=== PATIENT | female | born 1995 | race Caucasian/White ===

== ENCOUNTER 2016-10-28 11:40 | Inpatient (IN) | payer BC ==
[~2016-10-28] VITALS: Ht 162.6 cm; Wt 63.2 kg
[2016-10-28] MEDS ORDERED: BCPILLS PO (11:51)
--- NOTE | 2016-10-28 12:45 | DIAGNOSTIC IMAGING REPORT ---
RIGHT FOOT MIN 3 VIEWS ROUTINE CLINICAL HISTORY: Right foot pain (heel region) Right pain COMPARISON: None. DISCUSSION: The bones and joint spaces appear intact. There is no evidence of fracture, dislocation or bony disease. There is no evidence for soft tissue swelling. IMPRESSION: Negative study. Electronically signed by: Tony Mccray M.D. 10/28/2016 12:44 PM Dictated Date/Time: 10/28/2016 12:43 PM
[2016-10-28 12:50] LABS: BASO % 0.4 %; BASO ABS # 0.02 K/uL (0-0.2); COMPLETE YES; EOS % 3.6 %; HEMATOCRIT 39.4 % (37-47); LYMPH % 36.5 %; LYMPH ABS # 2.01 K/uL (1.2-3.4); MEAN PLATELET VOLUME 9.8 fL (7.4-10.4); MONO % 5.4 %; NEUT % 54.1 %; PLATELET COUNT 164 K/uL (130-400); RED BLOOD COUNT 4.06 M/uL (4.2-5.4); WHITE BLOOD COUNT 5.51 K/uL (4.8-10.8)
[2016-10-28 13:06] LABS: BUN/CREATININE RATIO 12.9 (10-20); CALCIUM 9.3 mg/dl (8.5-10.1); CREATININE 0.84 mg/dl (0.60-1.20); POTASSIUM 3.8 mmol/L (3.5-5.1)
[2016-10-28] MEDS ORDERED: SODIUM CHLORIDE 0.9% 1000ML 1,000 ML IV STA (13:29)
--- NOTE | 2016-10-28 13:56 | EMERGENCY ROOM VISIT NOTE ---
History First contact with patient: 11:49 Chief Complaint: FOOT PAIN Stated Complaint: PAIN IN RT FOOT/ALSO RT HAMSTRING History of Present Illness The patient is a 21 year old female who presents to the Emergency Room via private vehicle accompanied by male friend with complaints of "pain and right foot/also right hamstring". The patient states that she developed pain in the right foot/heel since yesterday morning. She notes that she has been more active recently and the past 2 weeks and has began a new exercise regimen. She also points pain to the right distal hamstring region that also began yesterday without any known injury. She states that the heel pain began when she woke up yesterday. She also notes that the hamstring does not feel like a cramp it is just a constant pain. The male air brake worker in the room states that the patient did jump landing on the heel about a week and a half ago that may or may not be related. Patient denies any chest pain, shortness of breath, fevers, chills, calf pain. Patient denies any urinary symptoms. Patient is unaware of any changes in her urine color. Review of Systems A complete 6-point Review of Systems was discussed with the patient, with pertinent positives and negatives listed in the History of Present Illness. All remaining Review of Systems questions can be considered negative unless otherwise specified. Past Medical/Surgical History Medical Problems: (1) Rhabdomyolysis Family History No pertinent family history at this time. Social History Smoking Status: Never Smoker Social History: Patient is a [employer] student. Current/Historical Medications Scheduled Control Pills ( Control Pills), 1 TAB PO DAILY Allergies Coded Allergies: Amoxicillin (Verified Allergy, Unknown, unknown, 10/28/16) Physical Exam Vital Signs Date Time Temp Pulse Resp B/P Pulse Ox O2 Delivery O2 Flow Rate FiO2 10/28/16 14:31 67 18 108/65 100 Room Air 10/28/16 11:47 36.8 63 18 110/69 99 Room Air Physical Exam VITAL SIGNS - Vital signs and nursing notes were reviewed. Patient is afebrile , she is normotensive, she is not tachycardic and saturating well on room air at 99%. GENERAL -21-year-old female appearing her stated age who is in no acute distress. Communicates well with provider and answers questions appropriately. SKIN - Without rashes. Skin is unremarkable. HEAD - NC/AT. LUNGS - Chest wall symmetric without accessory muscle use, intercostals retractions, or central cyanosis. Normal vesicular breath sounds CTA B/L. No wheezes, rales, or rhonchi appreciated. CARDIAC - RRR with S1/S2. No murmur, rubs, or gallops appreciated. EXTREMITIES - No clubbing or peripheral cyanosis. No pretibial edema present. Patient is vascularly intact in her extremities. There is tenderness palpation overlying the distal right hamstring. The calcaneal pain is not reproducible. There is no bony abnormality noted. The skin overlying these regions is unremarkable. No bony tenderness. +5/5 strength noted in UE/LE bilaterally. Medical Decision & Procedures ER Provider Diagnostic Interpretation: RIGHT FOOT MIN 3 VIEWS ROUTINE CLINICAL HISTORY: Right foot pain (heel region) Right pain COMPARISON: None. DISCUSSION: The bones and joint spaces appear intact. There is no evidence of fracture, dislocation or bony disease. There is no evidence for soft tissue swelling. IMPRESSION: Negative study. Electronically signed by: Tony Mccray M.D. 10/28/2016 12:44 PM Dictated Date/Time: 10/28/2016 12:43 PM ULTRASOUND RIGHT LOWER EXTREMITY VENOUS CLINICAL HISTORY: Right leg pain. COMPARISON STUDY: No priors. TECHNIQUE: Real-time, grayscale, and color Doppler sonography of the deep veins of the right lower extremity was performed from the inguinal crease to the calf. Compression and augmentation were utilized. FINDINGS: There is no sonographic evidence of deep venous thrombosis identified in the right lower extremity. The common femoral, superficial femoral, and popliteal veins are patent and normally compressible. The greater saphenous vein and the profunda femoris vein at the junction with the common femoral vein are clear. The visualized calf veins are patent. IMPRESSION: There is no sonographic evidence of deep venous thrombosis identified in the right lower extremity. Electronically signed by: Giles Juárez M.D. 10/28/2016 2:05 PM Dictated Date/Time: 10/28/2016 2:05 PM Laboratory Results 10/28/16 12:31 Red Blood Count 4.06, Mean Corpuscular Volume 97.0, Mean Corpuscular Hemoglobin 33.0, Mean Corpuscular Hemoglobin Concent 34.0, Mean Platelet Volume 9.8, Neutrophils (%) (Auto) 54.1, Lymphocytes (%) (Auto) 36.5, Monocytes (%) (Auto) 5.4, Eosinophils (%) (Auto) 3.6, Basophils (%) (Auto) 0.4, Neutrophils # (Auto) 2.98, Lymphocytes # (Auto) 2.01, Monocytes # (Auto) 0.30, Eosinophils # (Auto) 0.20, Basophils # (Auto) 0.02 10/28/16 12:31 Test 10/28/16 12:31 White Blood Count 5.51 K/uL (4.8-10.8) Red Blood Count 4.06 M/uL (4.2-5.4) Hemoglobin 13.4 g/dL (12.0-16.0) Hematocrit 39.4 % (37-47) Mean Corpuscular Volume 97.0 fL (80-100) Mean Corpuscular Hemoglobin 33.0 pg (25-34) Mean Corpuscular Hemoglobin Concent 34.0 g/dl (32-36) Platelet Count 164 K/uL (130-400) Mean Platelet Volume 9.8 fL (7.4-10.4) Neutrophils (%) (Auto) 54.1 % Lymphocytes (%) (Auto) 36.5 % Monocytes (%) (Auto) 5.4 % Eosinophils (%) (Auto) 3.6 % Basophils (%) (Auto) 0.4 % Neutrophils # (Auto) 2.98 K/uL (1.4-6.5) Lymphocytes # (Auto) 2.01 K/uL (1.2-3.4) Monocytes # (Auto) 0.30 K/uL (0.11-0.59) Eosinophils # (Auto) 0.20 K/uL (0-0.5) Basophils # (Auto) 0.02 K/uL (0-0.2) RDW Standard Deviation 44.1 fL (36.4-46.3) RDW Coefficient of Variation 12.5 % (11.5-14.5) Immature Granulocyte % (Auto) 0.0 % Immature Granulocyte # (Auto) 0.00 K/uL (0.00-0.02) Anion Gap 9.0 mmol/L (3-11) Est Creatinine Clear Calc Drug Dose 91.5 ml/min Estimated GFR () 115.1 Estimated GFR (Non- 99.4 BUN/Creatinine Ratio 12.9 (10-20) Calcium Level 9.3 mg/dl (8.5-10.1) Total Bilirubin 0.4 mg/dl (0.2-1) Direct Bilirubin < 0.1 mg/dl (0-0.2) Aspartate Amino Transf (AST/SGOT) 63 U/L (15-37) Alanine Aminotransferase (ALT/SGPT) 39 U/L (12-78) Alkaline Phosphatase 43 U/L (45-117) Creatine Kinase MB 0.7 ng/ml (0.5-3.6) Creatine Kinase MB Ratio 0.0 (0-3.0) Total Protein 7.5 gm/dl (6.4-8.2) Albumin 4.0 gm/dl (3.4-5.0) Medications Administered Medications (Trade) Dose Ordered Sig/Celso Route Start Time Stop Time Status Last Admin Dose Admin Sodium Chloride (Nss 1000ml) 1,000 ml @ 999 mls/hr Q1H1M STAT IV 10/28/16 13:29 10/28/16 15:17 DC 10/28/16 13:40 999 MLS/HR Medical Decision Patient was seen and evaluated as above. After obtaining a thorough history and physical examination IV access was obtained and a CBC, PRP, CPK, CK-MB, foot min on three-view routine, and lower extremity ultrasound was ordered secondary to subjective and objective examination findings. Top 3 differential diagnoses initially were DVT, rhabdomyolysis, and bone injury. Radiograph excluded bone injury. No sonographic evidence of DVT. CPK was elevated at around 3500. This is consistent with rhabdomyolysis. She was hydrated with 1 L of normal saline bolus. I then felt that the patient admitted inpatient criteria and would benefit from inpatient admission. The case was discussed with Dr. Friend at 2:53 PM. He happily agreed to see the patient. Please refer to further hospital documentation regarding the patient's stay. The remainder of the patient's blood work was relatively unremarkable. Slight anemia with red blood cell count of 4.06. Hemoglobin is stable rated glucose was also slightly high at 108. No other concerning abnormalities. In evaluation treatment this patient following differential diagnoses were entertained: Underlying bony abnormality, DVT, rhabdomyolysis, muscular strain, among others. Departure Information Dispostion Admitted as an inpatient Referrals No Doctor, Assigned (PCP) Klever Wei MD Patient Instructions My [facility] Additional Instructions You have been treated in the Emergency Department for right heel pain. For pain control, you can use the following [id number] medicines (if >12 yo): - Regular strength (325mg/tab) Tylenol (acetaminophen) 2 tabs every 4-6 hours as needed. Do not exceed 12 tablets in a 24 hour period. Avoid taking more than 4 grams (4000 mg) of Tylenol per day. This includes any other sources of acetaminophen you may take on a regular basis. - Regular strength (200 mg/tab) Advil (ibuprofen) 1-2 tabs every 4-6 hours as needed. Do not exceed a dose of 3200 mg per day. If this is a recent injury (<24 hrs), ice can be applied to the area of pain for the first 3 days to help decrease pain and inflammation. You have been provided the number for an Orthopaedic Surgeon. You should call this number as soon as possible to establish a follow-up visit from today's Emergency Department visit. (Dr. Wei) Keep the ankle brace/splint in place until cleared by Orthopedics. Use the crutches you have been provided to keep ALL weight off of the ankle until weight bearing is tolerable. Return to the Emergency Department if your current symptoms worsen despite treatment course outlined above, or if you develop any of the following symptoms : intractable pain despite aforementioned treatment course or new onset of numbness or tingling of the foot.
--- NOTE | 2016-10-28 14:07 | DIAGNOSTIC IMAGING REPORT ---
ULTRASOUND RIGHT LOWER EXTREMITY VENOUS CLINICAL HISTORY: Right leg pain. COMPARISON STUDY: No priors. TECHNIQUE: Real-time, grayscale, and color Doppler sonography of the deep veins of the right lower extremity was performed from the inguinal crease to the calf. Compression and augmentation were utilized. FINDINGS: There is no sonographic evidence of deep venous thrombosis identified in the right lower extremity. The common femoral, superficial femoral, and popliteal veins are patent and normally compressible. The greater saphenous vein and the profunda femoris vein at the junction with the common femoral vein are clear. The visualized calf veins are patent. IMPRESSION: There is no sonographic evidence of deep venous thrombosis identified in the right lower extremity. Electronically signed by: Giles Juárez M.D. 10/28/2016 2:05 PM Dictated Date/Time: 10/28/2016 2:05 PM
[2016-10-28] MEDS ORDERED: ONDANSETRON INJ 2 MG/ML 2 ML VIAL IV PRN (15:45)
[2016-10-28] MEDS ORDERED: ACETAMINOPHEN IV 100 ML IV PRN (15:45)
[2016-10-28] MEDS ORDERED: ACETAMINOPHEN 325 MG TAB PO PRN (15:45)
[2016-10-28] MEDS ORDERED: ZOLPIDEM TARTRATE 5 MG TAB PO PRN (15:45)
[2016-10-28 16:10] LABS: ALKALINE PHOSPHATASE 43 U/L (45-117); ALT/SGPT 39 U/L (12-78); AST/SGOT 63 U/L (15-37)
[2016-10-28] MEDS: NSS + 20MEQ KCL 1000ML 1,000 ML IV SCH ×2 (18:26→23:51)
[2016-10-28 22:38] VITALS: BP 102/69; PULSE 65; TEMP 36.7; O2SAT 100; Ht 162.6 cm; Wt 63.2 kg
[2016-10-28 23:59] VITALS: BP 109/65; PULSE 57; TEMP 36.5; O2SAT 100
--- NOTE | 2016-10-29 03:20 | History and Physical ---
History & Physical Date & Time of Service: Oct 29, 2016 at 03:15 Chief Complaint: Rhabdomyolysis Primary Care Physician: No Doctor, Assigned History of Present Illness Source: patient, partner The patient is a 21-year-old female who presents emergency department with complaint of pain in her right hamstring area and right calf area. The pain first developed yesterday morning, after 2 weeks of a more aggressive new exercise program. She has not reported any direct trauma. She's had no previous symptoms such as this. She's had no recent trips, she has no chest pain or shortness of breath. She does take protein supplements before and after exercising. Social History Smoking Status: Never Smoker Smokeless Tobacco Use: No Alcohol Use: none Drug Use: none Marital Status: in relationship Occupational Status: [employer] student Multi-Drug Resistant Organisms History of MDRO: No Allergies Coded Allergies: Amoxicillin (Verified Allergy, Unknown, unknown, 10/28/16) Home Medications Scheduled Control Pills ( Control Pills), 1 TAB PO DAILY Review of Systems The patient denies chest pain, palpitations, shortness of breath, cough, lower extremity swelling, vision change, hearing change, sore throat, fevers, chills, sweats, weight change, fatigue, nausea, vomiting, abdominal pain, pelvic pain, blood in urine or stool, dysuria, urinary frequency or urgency, lightheadedness , dizziness, headache, memory loss, rash, abnormal bruising or bleeding, imbalance, focal or generalized weakness, back or neck pain, night sweats, or allergy symptoms. The review of systems is otherwise negative other than for that already noted above, and at least 10 systems have been reviewed. Physical Exam Vital Signs Date Time Temp Pulse Resp B/P Pulse Ox O2 Delivery O2 Flow Rate FiO2 10/28/16 23:59 36.5 57 16 109/65 100 Room Air 10/28/16 22:38 36.7 65 18 102/69 100 Room Air 10/28/16 16:23 61 16 113/76 100 Room Air 10/28/16 14:31 67 18 108/65 100 Room Air 10/28/16 11:47 36.8 63 18 110/69 99 Room Air The patient is awake, well-developed and adequately nourished, alert and oriented 3, normocephalic and atraumatic, lying in bed and in no acute distress. HEENT--PERRL, EOMI, mucous membranes and oropharynx dry. Neck--supple, no JVD or bruits, thyroid normal, trachea midline, no adenopathy. Heart--normal S1 and S2, no extra beats, no murmurs, rubs or gallops. Lungs--clear bilaterally with good air movement, no respiratory distress, no accessory muscle use. Abdomen--normal bowel sounds and soft, nontender and nondistended, no hernias or masses, no organomegaly. Extremities--no cyanosis, clubbing or edema. There are good distal pulses b/l. Dermatologic--normal skin turgor, normal color, warm and dry, no abnormal lymph nodes, no rash. Neurologic--cranial nerves II through XII grossly intact, motor and sensory examination normal. Rheumatologic--mild reproducible pain over right hamstring and right calf area, with full range of motion. Psychiatric--normal affect. Diagnostics Laboratory Results Results Past 24 Hours Test 10/28/16 12:31 10/28/16 16:23 10/28/16 23:53 Range/Units White Blood Count 5.51 4.8-10.8 K/uL Red Blood Count 4.06 4.2-5.4 M/uL Hemoglobin 13.4 12.0-16.0 g/dL Hematocrit 39.4 37-47 % Mean Corpuscular Volume 97.0 80-100 fL Mean Corpuscular Hemoglobin 33.0 25-34 pg Mean Corpuscular Hemoglobin Concent 34.0 32-36 g/dl Platelet Count 164 130-400 K/uL Mean Platelet Volume 9.8 7.4-10.4 fL Neutrophils (%) (Auto) 54.1 % Lymphocytes (%) (Auto) 36.5 % Monocytes (%) (Auto) 5.4 % Eosinophils (%) (Auto) 3.6 % Basophils (%) (Auto) 0.4 % Neutrophils # (Auto) 2.98 1.4-6.5 K/uL Lymphocytes # (Auto) 2.01 1.2-3.4 K/uL Monocytes # (Auto) 0.30 0.11-0.59 K/uL Eosinophils # (Auto) 0.20 0-0.5 K/uL Basophils # (Auto) 0.02 0-0.2 K/uL RDW Standard Deviation 44.1 36.4-46.3 fL RDW Coefficient of Variation 12.5 11.5-14.5 % Immature Granulocyte % (Auto) 0.0 % Immature Granulocyte # (Auto) 0.00 0.00-0.02 K/uL Sodium Level 142 136-145 mmol/L Potassium Level 3.8 3.5-5.1 mmol/L Chloride Level 107 98-107 mmol/L Carbon Dioxide Level 26 21-32 mmol/L Anion Gap 9.0 3-11 mmol/L Blood Urea Nitrogen 11 7-18 mg/dl Creatinine 0.84 0.60-1.20 mg/dl Est Creatinine Clear Calc Drug Dose 91.5 ml/min Estimated GFR () 115.1 Estimated GFR (Non- 99.4 BUN/Creatinine Ratio 12.9 10-20 Random Glucose 108 70-99 mg/dl Calcium Level 9.3 8.5-10.1 mg/dl Total Bilirubin 0.4 0.2-1 mg/dl Direct Bilirubin < 0.1 0-0.2 mg/dl Aspartate Amino Transf (AST/SGOT) 63 15-37 U/L Alanine Aminotransferase (ALT/SGPT) 39 12-78 U/L Alkaline Phosphatase 43 45-117 U/L Total Creatine Kinase 3597 3076 3441 26-192 U/L Creatine Kinase MB 0.7 0.5-3.6 ng/ml Creatine Kinase MB Ratio 0.0 0-3.0 Total Protein 7.5 6.4-8.2 gm/dl Albumin 4.0 3.4-5.0 gm/dl Diagnostic Radiology Patient Name: EMMIE TURNER Unit Number: [id number] Dictated: 10/28/161404 Transcribed: 10/28/161404 EV Printed Date/Time: [~ rep prt dt]/[~ rep prt tm] [~ rep ct labl] - [~ rep ct ivnm] [facility] [place] [address] Dictated: 10/28/161404 Transcribed: 10/28/161404 EV Printed Date/Time: [~ rep prt dt]/[~ rep prt tm] [~ rep ct labl] - [~ rep ct ivnm] [~ rep ct add3]] ULTRASOUND RIGHT LOWER EXTREMITY VENOUS CLINICAL HISTORY: Right leg pain. COMPARISON STUDY: No priors. TECHNIQUE: Real-time, grayscale, and color Doppler sonography of the deep veins of the right lower extremity was performed from the inguinal crease to the calf. Compression and augmentation were utilized. FINDINGS: There is no sonographic evidence of deep venous thrombosis identified in the right lower extremity. The common femoral, superficial femoral, and popliteal veins are patent and normally compressible. The greater saphenous vein and the profunda femoris vein at the junction with the common femoral vein are clear. The visualized calf veins are patent. IMPRESSION: There is no sonographic evidence of deep venous thrombosis identified in the right lower extremity. Electronically signed by: Giles Juárez M.D. 10/28/2016 2:05 PM Dictated Date/Time: 10/28/2016 2:05 PM The status of this report is Signed. Draft = Not yet reviewed or approved by Radiologist. Signed = Reviewed and approved by Radiologist. <AttendingPhy></AttendingPhy> <FamilyPhy>No Doctor, Assigned</FamilyPhy> < PrimaryPhy>No Doctor, Assigned</PrimaryPhy> <UnitNumber>[id number]</UnitNumber> <VisitNumber>[id number]</VisitNumber> <PatientName>EMMIE TURNER</PatientName> < DateOfBirth>1995</DateOfBirth> <Location>[facility]</Location> <ServiceDate></ServiceDate> <MNE>ESINDI</MNE> <OrderingPhy>Hermes Gallagher PA-C</ OrderingPhy> <OrderingPhyMNE>f rep ord dr sherman</OrderingPhyMNE> <DictatingPhyMNE> f rep dict dr sherman</DictatingPhyMNE> <CCListMNE>f rep ct lane</CCListMNE> < AdmittingPhyMNE>f pt admit dr sherman</AdmittingPhyMNE> <AttendingPhyMNE>f pt attend dr sherman</AttendingPhyMNE> <ConsultingPhyMNE>f pt consult dr sherman</ConsultingPhyMNE> <FamilyPhyMNE>f pt fam dr sherman</FamilyPhyMNE> <OtherPhyMNE>f pt other dr sherman</OtherPhyMNE> < PrimaryPhyMNE>f pt prim care dr sherman</PrimaryPhyMNE> <ReferringPhyMNE>f pt referring dr sherman</ReferringPhyMNE> Patient Name: EMMIE TURNER Unit Number: [id number] Dictated: 10/28/161242 Transcribed: 10/28/161242 MS Printed Date/Time: [~ rep prt dt]/[~ rep prt tm] [~ rep ct labl] - [~ rep ct ivnm] [facility] [place] [address] Dictated: 10/28/16 124 Transcribed: 10/28/16 1243 MS Printed Date/Time: [~ rep prt dt]/[~ rep prt tm] [~ rep ct labl] - [~ rep ct ivnm] RIGHT FOOT MIN 3 VIEWS ROUTINE CLINICAL HISTORY: Right foot pain (heel region) Right pain COMPARISON: None. DISCUSSION: The bones and joint spaces appear intact. There is no evidence of fracture, dislocation or bony disease. There is no evidence for soft tissue swelling. IMPRESSION: Negative study. Electronically signed by: Tony Mccray M.D. 10/28/2016 12:44 PM Dictated Date/Time: 10/28/2016 12:43 PM The status of this report is Signed. Draft = Not yet reviewed or approved by Radiologist. Signed = Reviewed and approved by Radiologist. <AttendingPhy></AttendingPhy> <FamilyPhy>No Doctor, Assigned</FamilyPhy> < PrimaryPhy>No Doctor, Assigned</PrimaryPhy> <UnitNumber>[id number]</UnitNumber> <VisitNumber>[id number]</VisitNumber> <PatientName>EMMIE TURNER</PatientName> < DateOfBirth>1995</DateOfBirth> <Location>[facility]</Location> <ServiceDate></ServiceDate> <MNE>ESINDI</MNE> <OrderingPhy>Hermes Gallagher PA-C</ OrderingPhy> <OrderingPhyMNE>f rep ord dr sherman</OrderingPhyMNE> <DictatingPhyMNE> f rep dict dr sherman</DictatingPhyMNE> <CCListMNE>f rep ct lane</CCListMNE> < AdmittingPhyMNE>f pt admit dr sherman</AdmittingPhyMNE> <AttendingPhyMNE>f pt attend dr sherman</AttendingPhyMNE> <ConsultingPhyMNE>f pt consult dr sherman</ConsultingPhyMNE> <FamilyPhyMNE>f pt fam dr sherman</FamilyPhyMNE> <OtherPhyMNE>f pt other dr sherman</OtherPhyMNE> < PrimaryPhyMNE>f pt prim care dr sherman</PrimaryPhyMNE> <ReferringPhyMNE>f pt referring dr sherman</ReferringPhyMNE> Impression Assessment and Plan Rhabdomyolysis--patient's lower extremity venous Dopplers are negative for DVT has been no direct injury to bone. Her initial CK is elevated at 3597. We'll aggressively rehydrate with IV fluids, follow serial BMP CK and magnesium levels. She is advised to avoid protein supplements in the future. Level of Care Med/Surg Advanced Directives Existing Advance Directive: No Existing Living Will: No Existing Power of Drywall Sander: No Resuscitation Status FULL RESUSCITATION VTE Prophylaxis VTE Risk Assessment Done? Y/N: Yes Risk Level: Low Given or contraindicated: Treatment not indicated Social Service Consult None Apply
[2016-10-29] MEDS: NSS + 20MEQ KCL 1000ML 1,000 ML IV SCH ×5 (04:51→23:52)
[2016-10-29 07:52] VITALS: BP 107/74; PULSE 82; TEMP 36.8; O2SAT 99
[2016-10-29 15:02] LABS: BUN/CREATININE RATIO 8.3 (10-20); CALCIUM 8.3 mg/dl (8.5-10.1); CREATININE 0.71 mg/dl (0.60-1.20); POTASSIUM 3.9 mmol/L (3.5-5.1)
[2016-10-29 15:13] VITALS: BP 103/69; PULSE 89; TEMP 36.9; O2SAT 100
--- NOTE | 2016-10-29 15:36 | Medical Student: [facility] ---
Med Student History & Physical Date & Time of Service: Oct 29, 2016 at 09:17 Chief Complaint: Rhabdomyolysis Primary Care Physician: No Doctor, Assigned History of Present Illness Crystal is a 21 y/o female with no significant past medical history was seen in the ED yesterday complaining of pain in her RLE, which was mainly localized to her ankle and the medial aspect of her thigh. In the ED, she was noted to have an elevated CK, so she was admitted for possible rhabdomyolysis. Two weeks ago, she started a vigorous new exercise program that includes a significant amount of weight training. Prior to this, she had only been exercising approximately once per week. She takes a protein supplement and a pre-workout supplement daily. She describes her pain as 6/10, dull, and non-radiating. She has never experienced an event like this in the past. She denies dark urine, lower back pain, or any urinary symptoms. She denies paresthesias or sensory loss. She denies any feeling of coolness or clamminess in the RLE, and has not noticed any skin changes. She denies any loss of strength or range of motion in her lower extremities bilaterally. She denies any blunt trauma to the area. She has not tried any interventions to improve her pain. She has no history of clotting or bleeding disorders, but is currently taking an oral contraceptive. Family History Non-contributory. Social History Smoking Status: Never Smoker Smokeless Tobacco Use: No Alcohol Use: none Drug Use: none Marital Status: in relationship Occupational Status: [employer] student Immunizations History of Influenza Vaccine: Yes History of Tetanus Vaccine?: Yes History of Pneumococcal: Yes History of Hepatitis B Vaccine: Yes Allergies Coded Allergies: Amoxicillin (Verified Allergy, Unknown, unknown, 10/28/16) Medications Control Pills ( Control Pills), 1 TAB PO DAILY Review of Systems Constitutional: No chills, No fever, No sweats, No weakness, No weight loss Eyes: No diplopia, No eye pain ENT: No hearing loss, No unusual epistaxis Respiratory: No cough, No shortness of breath, No sputum Cardiovascular: No chest pain, No palpitations Abdomen: No GI bleeding, No constipation, No diarrhea, No nausea, No pain, No vomiting Musculoskeletal: + calf pain, + muscle pain, No swelling Genitourinary - Female: No dysuria, No hematuria, No urinary frequency, No urinary incontinence, No urinary retention, No urinary urgency Neurologic: No balance problems, No paralysis, No weakness Psychiatric: No problem reported Endocrine: No excessive thirst, No excessive urination Hematologic / Lymphatic: No abnormal bleeding/bruising, No clotting problems Integumentary: No bleeding, No color change, No new/changing skin lesions Physical Exam Vital Signs (24 Hours) Date Time Temp Pulse Resp B/P Pulse Ox O2 Delivery O2 Flow Rate FiO2 10/29/16 07:52 36.8 82 16 107/74 99 Room Air 10/29/16 00:00 Room Air 10/28/16 23:59 36.5 57 16 109/65 100 Room Air 10/28/16 22:38 36.7 65 18 102/69 100 Room Air 10/28/16 16:23 61 16 113/76 100 Room Air 10/28/16 14:31 67 18 108/65 100 Room Air 10/28/16 11:47 36.8 63 18 110/69 99 Room Air General Appearance: WD/WN, no apparent distress Head: normocephalic, atraumatic Eyes: normal inspection, PERRL, EOMI Neck: supple, no adenopathy, no JVD, no carotid bruits Respiratory/Chest: chest non-tender, lungs clear, normal breath sounds, no respiratory distress, no accessory muscle use Cardiovascular: regular rate, rhythm, no edema, no gallop, no JVD, no murmur, normal peripheral pulses Abdomen/GI: normal bowel sounds, non tender, soft, no organomegaly, no pulsatile mass Back: normal inspection, no CVA tenderness, no muscle spasm, normal range of motion Extremities/Musculoskelatal: normal inspection, normal capillary refill, no pedal edema, normal range of motion, + calf tenderness Neurologic/Psych: no motor/sensory deficits, alert, normal mood/affect, normal reflexes (2+ ankle jerk and patellar tendon reflexes bilaterally), oriented x 3 Skin: normal color, warm/dry, no rash Lymphatic: no adenopathy Diagnostics Laboratory Results Results Past 24 Hours Test 10/28/16 12:31 10/28/16 16:23 10/28/16 23:53 10/29/16 08:03 Range/Units White Blood Count 5.51 4.8-10.8 K/uL Red Blood Count 4.06 4.2-5.4 M/uL Hemoglobin 13.4 12.0-16.0 g/dL Hematocrit 39.4 37-47 % Mean Corpuscular Volume 97.0 80-100 fL Mean Corpuscular Hemoglobin 33.0 25-34 pg Mean Corpuscular Hemoglobin Concent 34.0 32-36 g/dl Platelet Count 164 130-400 K/uL Mean Platelet Volume 9.8 7.4-10.4 fL Neutrophils (%) (Auto) 54.1 % Lymphocytes (%) (Auto) 36.5 % Monocytes (%) (Auto) 5.4 % Eosinophils (%) (Auto) 3.6 % Basophils (%) (Auto) 0.4 % Neutrophils # (Auto) 2.98 1.4-6.5 K/uL Lymphocytes # (Auto) 2.01 1.2-3.4 K/uL Monocytes # (Auto) 0.30 0.11-0.59 K/uL Eosinophils # (Auto) 0.20 0-0.5 K/uL Basophils # (Auto) 0.02 0-0.2 K/uL RDW Standard Deviation 44.1 36.4-46.3 fL RDW Coefficient of Variation 12.5 11.5-14.5 % Immature Granulocyte % (Auto) 0.0 % Immature Granulocyte # (Auto) 0.00 0.00-0.02 K/uL Sodium Level 142 136-145 mmol/L Potassium Level 3.8 3.5-5.1 mmol/L Chloride Level 107 98-107 mmol/L Carbon Dioxide Level 26 21-32 mmol/L Anion Gap 9.0 3-11 mmol/L Blood Urea Nitrogen 11 7-18 mg/dl Creatinine 0.84 0.60-1.20 mg/dl Est Creatinine Clear Calc Drug Dose 91.5 ml/min Estimated GFR () 115.1 Estimated GFR (Non- 99.4 BUN/Creatinine Ratio 12.9 10-20 Random Glucose 108 70-99 mg/dl Calcium Level 9.3 8.5-10.1 mg/dl Total Bilirubin 0.4 0.2-1 mg/dl Direct Bilirubin < 0.1 0-0.2 mg/dl Aspartate Amino Transf (AST/SGOT) 63 15-37 U/L Alanine Aminotransferase (ALT/SGPT) 39 12-78 U/L Alkaline Phosphatase 43 45-117 U/L Total Creatine Kinase 3597 3076 3441 3584 26-192 U/L Creatine Kinase MB 0.7 0.5-3.6 ng/ml Creatine Kinase MB Ratio 0.0 0-3.0 Total Protein 7.5 6.4-8.2 gm/dl Albumin 4.0 3.4-5.0 gm/dl Impression Assessment and Plan ASSESSMENT: Crystal Adrian is a 21 y/o female with no significant past medical history who presents with a two day history of RLE pain and elevated CK without evidence of MYRIAM. The most likely explanation for her symptoms is acute trauma related to overuse, given that she just started a rigorous new workout program, her CK elevation is fairly mild, and she has no pigmented urine or lab findings indicative of rhabdomyolysis. Though rhabdomyolysis is also possible, she has not seen any pigmentation in her urine and has had completely normal renal function throughout her hospital course. DVT is also a possibility, but is unlikely, as Coty's sign was negative, there is no edema, and Doppler of the RLE was negative. Compartment syndrome must also be ruled out-- this is very unlikely, since she is neurovascularly intact and there are no skin changes. As long as her CK continues to trend down and there is no evidence of MYRIAM or compartment syndrome, it would be appropriate to discharge her later today. PLAN: Elevated CK Continue to monitor renal function with serial BMP and ensure CK is trending downward Continue fluid resuscitation RLE pain Monitor for red flags that would indicate a developing compartment syndrome DVT prophylaxis: None required, as pt is young and healthy and ambulating on her own Code status: FULL CODE Level of Care Med/Surg Advanced Directives Existing Advance Directive: No Existing Living Will: No Existing Power of Mutuel Machine Operator: No Resuscitation Status FULL RESUSCITATION DVT Prophylaxis patient low risk - not indicated Social Service Consult None Apply
--- NOTE | 2016-10-29 17:08 | Family Medicine Progress Note ---
Progress Note Date of Service Oct 29, 2016. Subjective Pt evaluation today including: conversation w/ patient Pain: 11/08 Voiding: no voiding problems patient reports having started an intense exercise regimen recently. Takes preworkout and protein shakes Starting feeling pain on Friday in the Right lower extremity. This morning, her pain has subsided for the most part. She does have full range of motion and is ambulatory Constitutional: + fatigue, No chills, No fever Eyes: No worsening of vision Respiratory: No cough, No dyspnea on exertion, No shortness of breath, No sputum, No wheezing Cardiovascular: No chest pain Abdomen: No constipation, No diarrhea, No nausea, No pain, No vomiting Musculoskeletal: + calf pain, + muscle pain Female : No dysuria, No urinary frequency Objective Physical Exam General Appearance: no apparent distress Eyes: PERRL, EOMI ENT: hearing grossly normal, TMs normal Respiratory/Chest: lungs clear, normal breath sounds, no respiratory distress, no accessory muscle use Cardiovascular: regular rate, rhythm, no edema Abdomen: normal bowel sounds, non tender, soft Extremities: normal range of motion, non-tender, normal inspection, no pedal edema, + calf tenderness (minimal right sided) Neurologic/Psychiatric: no motor/sensory deficits, alert, normal mood/affect Assessment and Plan 21 y/o F with Mild rhabdomyolysis without evidence of acute kidney injury. Unfortunately, her enzymes have been trending up which could just mean that her muscle injury has not quite subsided yet. The patient was requesting to go home and we strongly discouraged that in the setting of worsening CK. We need to continue to prove a downward trend and maintenance of normal kidney function before we would be comfortable with her going home. Also advised that if she chooses to go home, this would be against medical advice. Rhabdo: Trend CK Monitor BMP continue IVF fluids at current rate. Monitor blood pressure and I/O. Monitor RLE pain. Discourage going home, no exercise for a couple of weeks, No alcohol/binge drinking. Continue control DVT: ambulatory History Resident Physician Supervision Note: I was present with Dr. Bird during the history and exam. I discussed the case with the resident and agree with the findings and plan as documented in the note. Any exceptions or clarifications are listed here Pt seen and examined at bedside. Aching nonradiating pain of the medial aspect of the thigh which is gradually improving but worsens with use. Reports increased exercise, denies substance use or tobacco use, intermittent alcohol use of less than 5 drinks per episode. Reports no nausea, BLANDON, lightheadedness, CP/SOB, urinary complaints. Patient is feeling stuck in the room and would like to go around the hospital. I have reviewed with her that using the leg will likely delay the clearing of CPK from her system, but she would like to go and understands these risks. She will use a wheelchair to minimize impact on the leg. She is agreeable to urine testing for myoglobin. General Appearance: WD/WN, no apparent distress Gastrointestinal: normal bowel sounds, non tender, soft, no organomegaly Extremities: normal range of motion, normal inspection, no pedal edema, other ( TTP over the medial hamstring which is worse with flexion and extension) Assessment/Plan 21 y/o female without medical history presents w/ acute rhabdo and RLE pain w/ neg doppler Rhabdomyolysis - trend CK BID, continue aggressive IV hydration. education re: stretching, hydration. Urine myoglobin and UDS DVT PPX - d/w patient re: ambulation v. PPX 2/2 condition and decide.
[2016-10-29 19:14] LABS: BUN/CREATININE RATIO 8.2 (10-20); CALCIUM 8.7 mg/dl (8.5-10.1); CREATININE 0.71 mg/dl (0.60-1.20); POTASSIUM 3.8 mmol/L (3.5-5.1)
[2016-10-29 19:17] LABS: URINE APPEARANCE CLEAR (CLEAR); URINE BILIRUBIN NEG (NEG); URINE COLOR YELLOW; URINE EPITHELIAL CELL AUTO 20-30 /lpf (0-5); URINE NITRITE NEG (NEG); URINE PH 7.5 (4.5-7.5); URINE SPECIFIC GRAVITY 1.002 (1.000-1.030); UROBILINOGEN NEG (NEG)
[2016-10-29 19:18] LABS: MANUAL MICROSCOPIC REQUIRED? NO; REVIEW REQ? NO
[2016-10-29 22:48] LABS: PROTHROMBIN TIME (PATIENT) 10.7 SECONDS (9.0-12.0)
[2016-10-29 23:55] VITALS: BP 110/71; PULSE 67; TEMP 36.9; O2SAT 100
[2016-10-30] VITALS (7 sets, daily range): BP systolic 97–122; BP diastolic 63–72; PULSE 72–78; TEMP 36.5–36.6; O2SAT 96–100
[2016-10-30] MEDS: NSS + 20MEQ KCL 1000ML 1,000 ML IV SCH ×4 (04:51→15:11)
[2016-10-30 07:57] LABS: BUN/CREATININE RATIO 5.4 (10-20); CALCIUM 8.3 mg/dl (8.5-10.1); CREATININE 0.73 mg/dl (0.60-1.20)
[2016-10-30] MEDS ORDERED: ENOXAPARIN 40 MG/0.4 ML SYR SQ SCH (09:00)
--- NOTE | 2016-10-30 16:36 | Discharge Instructions ---
Discharge Instructions Admission Reason for Admission: Rhabdomyolysis Discharge Discharge Diagnosis / Problem: Rhabdomyolysis Discharge Goals Goal(s): Decrease discomfort, Improve function, Increase independence, Diagnostic testing, Prevent Disease Progression Activity Recommendations Activity Limitations: as noted below Lifting Limitations: no more than 5 pounds, gradually increase as tolerated Exercise/Sports Limitations: gradually increase as tolerated (would avoid heavy lifting for 2-4 weeks. Gradually ease back into exercise) May Resume Sexual Activity: when tolerated Shower/Bathe: no limitations Driving or Machine Use: no limitations . Instructions / Follow-Up Instructions / Follow-Up Dear Crystal, You were admitted to the hospital due to right lower leg pain. This is a result of a condition called Rhabdomyolysis which is caused by muscle damage (likely from your new and intense exercise regimen). We measure this with an enzyme called CK. This number was trended and there was a slight bump so we recommended staying an additional night. We continued to trend these numbers and while they were coming down slowly, they were not quite below our threshold. We do recommend another night at the hospital however, you were requesting to home and we have explained the risks of persistent elevation or worsening of your enzyme elevation and potential for Kidney damage. Your function has remained normal so far. We recommend: 1) Close follow up with Dr. Bird tomorrow 10/31/2016 in the afternoon ( between 1 - 5 pm)- Case management will attempt to make an appointment but if you do not hear from them please call ([facility]) and make an appt OR come in to walk in. 2) Do blood work in the morning tomorrow 3) Refrain from intense physical activity for 2-4 weeks - When you are ready to start exercising again ( after being seen by a PCP and repeat blood work is normal), start with light physical activity/ cardio/ light weight training - If you are tolerating that without pain or similar symptoms, you may gradually increase your activity levels - If ever, in the future you have periods of inactivity, remember to gradually ease into any exercise program. 4) Stay hydrated- atleast 2 L daily 5) Avoid Alcohol, drugs 6) Get enough sleep 7) Avoid supplements that are not FDA- regulated (pre-workout etc) Please do not hesitate to contact us with questions. If you have worsening symptoms, please return to the hospital. Thank you for allowing us to be a part of your care. Current Hospital Diet Patient's current hospital diet: Regular Diet Discharge Diet Recommended Diet: Regular Diet Fluid Restriction: None Pending Studies Studies pending at discharge: no Medical Emergencies . Who to Call and When: Medical Emergencies: If at any time you feel your situation is an emergency, please call 911 immediately. . Non-Emergent Contact Non-Emergency issues call your: Primary Care Provider Call Non-Emergent contact if: your pain is not controlled, your pain is worsening, your pain is unusual for you, your pain is concerning you . . "Provider Documentation" section prepared by Elizabeth Thomas. VTE Core Measure Inpt VTE Proph given/why not?: Enoxaparin (Lovenox)SQ
[2016-10-30 17:18] LABS: BENZODIAZEPINE, URINE NEG (NEG); COCAINE,URINE NEG (NEG); PHENCYCLIDINE, URINE NEG (NEG)
--- NOTE | 2016-10-30 17:22 | Discharge Summary ---
Discharge Summary Admission Date: Oct 28, 2016 at 15:39 Discharge Date: Oct 30, 2016 Discharge Disposition: Home Principal Diagnosis: Rhabdomyolysis Immunizations: Have You Had Influenza Vaccine: Yes History of Tetanus Vaccine?: Yes History of Pneumococcal: Yes History of Hepatitis B Vaccine: Yes Procedures: ULTRASOUND RIGHT LOWER EXTREMITY VENOUS CLINICAL HISTORY: Right leg pain. COMPARISON STUDY: No priors. TECHNIQUE: Real-time, grayscale, and color Doppler sonography of the deep veins of the right lower extremity was performed from the inguinal crease to the calf. Compression and augmentation were utilized. FINDINGS: There is no sonographic evidence of deep venous thrombosis identified in the right lower extremity. The common femoral, superficial femoral, and popliteal veins are patent and normally compressible. The greater saphenous vein and the profunda femoris vein at the junction with the common femoral vein are clear. The visualized calf veins are patent. IMPRESSION: There is no sonographic evidence of deep venous thrombosis identified in the right lower extremity. RIGHT FOOT MIN 3 VIEWS ROUTINE CLINICAL HISTORY: Right foot pain (heel region) Right pain COMPARISON: None. DISCUSSION: The bones and joint spaces appear intact. There is no evidence of fracture, dislocation or bony disease. There is no evidence for soft tissue swelling. IMPRESSION: Negative study. (Elizabeth Bird MD) Medication Reconciliation Continued Medications: Control Pills ( Control Pills) Tab 1 TAB PO DAILY, TAB Discharge Exam This is a 21 y/o F who presented to the ED with right lower extremity pain. She recently started an intense weight lifting program and takes pre-workout/ protein powder. She was found to have a CK of 3500. Her Kidney function remained normal. U/A and Urine tox were negative. LE doppler was negative. There were no signs of compartment syndrome. She was treated with IV fluids, but there was a slow upward trend in CK the first day. We advised atleast one night of observation and trending of enzymes, despite patients repeated requests to go home. The CK eventually did trend down but not quite below 3000 yet. She remained stable, asymptomatic and her MSK exam was normal. We recommended another night of observation, but Again, patient was requesting to go home so we strongly advised close follow up and repeat enzymes/bmp. She was scheduled with PCP for the following day. Instructions were provided on gradual and safe return to work and exercise. She was recommended not to use supplements since they are not FDA approved. Review of Systems: Constitutional: No chills, No fever, No weakness Respiratory: No cough, No dyspnea at rest, No dyspnea on exertion, No shortness of breath, No sputum, No wheezing Cardiovascular: No chest pain Abdomen: No nausea, No pain, No vomiting Genitourinary - Female: No dysuria, No urinary frequency Physical Exam: General Appearance: no apparent distress Eyes: PERRL, EOMI ENT: hearing grossly normal Neck: supple Respiratory/Chest: lungs clear, normal breath sounds, no respiratory distress, no accessory muscle use Cardiovascular: regular rate, rhythm, no edema Abdomen / GI: normal bowel sounds, non tender, soft Extremities: normal inspection, no calf tenderness, normal capillary refill , no pedal edema, normal range of motion Neurologic/Psychiatric: alert, normal mood/affect Skin: normal color, warm/dry, no rash (Elizabeth Bird MD) Hospital Course Total Time Spent: Less than 30 minutes This includes examination of the patient, discharge planning, medication reconciliation, and communication with other providers. (Elizabeth Bird MD) Total Time Spent: Less than 30 minutes (King Aguirre MD) Discharge Instructions Please refer to the electronic Patient Visit Report (Discharge Instructions) for additional information. (Elizabeth Bird MD) Follow-Up Dr. Bird, 10/31/2016, 4:20 pm with repeat labs (Elizabeth Bird MD) Additional Copies To Elizabeth Bird MD History Resident Physician Supervision Note: I was present with Dr. Bird during the history and exam. I discussed the case with the resident and agree with the findings and plan as documented in the note. Any exceptions or clarifications are listed here. Pt seen and examined at bedside. RLE pain improved, now 2/10. Able to ambulate in room without assistance without difficulty. Reports no numbness, tinglign, weakness, other leg pain, swelling, joint pain, hip pain, nausea, BLANDON, lightheadedness. (King Aguirre MD) General Appearance: WD/WN, no apparent distress Gastrointestinal: normal bowel sounds, non tender, soft, no organomegaly Extremities: normal range of motion, non-tender, normal inspection, no pedal edema, no calf tenderness (King Aguirre MD) Assessment/Plan 21 y/o female without medical history presents w/ acute rhabdo and RLE pain w/ neg doppler Rhabdomyolysis - improving, now low enough risk to be followed outpatient - close f/u, repeat CK in AM, encourage PO hydration, activity modification. (King Aguirre MD)
[2016-11-01 12:57] LABS: CARBOXY THC TO CREAT RATIO 770 NG/MG; CARBOXY THC UR GC/MS 77 NG/ML (CUTOFF=5); URCREATININE 10.2 MG/DL (>/= 20)
== END 2016-10-30 18:15 | disposition home or self-care (01) | DRG 558 ==
LOC: ENRESERVDT → ENRESERVTM → C.EDB 11:42 → C.MS2W 15:39
PROVIDERS: ADMIT Hospitalist; ATTEND Family Medicine
DX: M62.82 Rhabdomyolysis (principal); Y93.B9 Activity, other involving muscle strengthening exercises; Z79.3 Long term (current) use of hormonal contraceptives

== ENCOUNTER → 2016-10-31 | Outpatient (CLI) | payer BC ==
[~2016-10-31] MED LIST: BCPILLS PO
[2016-10-31 10:12] LABS: BLOOD UREA NITROGEN 6 mg/dl (7-18); BUN/CREATININE RATIO 6.3 (10-20); CALCIUM 9.2 mg/dl (8.5-10.1); CARBON DIOXIDE 26 mmol/L (21-32); CHLORIDE 104 mmol/L (98-107); GLUCOSE 89 mg/dl (70-99); POTASSIUM 3.8 mmol/L (3.5-5.1); SODIUM 139 mmol/L (136-145)
== END | disposition home or self-care (01) ==
LOC: C.LAB 09:15
PROVIDERS: ATTEND Student in an Organized Health Care Education/Training Program
DX: M62.82 Rhabdomyolysis (principal)

== ENCOUNTER → 2016-11-06 | Outpatient (CLI) | payer BC ==
[2016-11-06 10:24] LABS: BLOOD UREA NITROGEN 8 mg/dl (7-18); BUN/CREATININE RATIO 10.5 (10-20); CALCIUM 9.2 mg/dl (8.5-10.1); CARBON DIOXIDE 28 mmol/L (21-32); CHLORIDE 107 mmol/L (98-107); GLUCOSE 82 mg/dl (70-99); POTASSIUM 3.8 mmol/L (3.5-5.1); SODIUM 143 mmol/L (136-145)
--- NOTE | 2016-11-07 10:51 | EDITING REQUIRED CODING QUERY ---
TREATMENT RENDERED WITHOUT A DIAGNOSIS Dr. Bird, To promote full compliance with coding requirements relating to patient care, physician participation is requested in all cases of information coder uncertainty. Please assist us with providing a diagnosis/symptom for the test(s) below: A diagnosis/symptom was not documented on your Order. A valid diagnosis/symptom is required to bill all insurances. Please remember that we are unable to code a diagnosis of rule out, probable, possible, questionable, or suspected. Tests that require a diagnosis: * CPK DIAGNOSIS: Rhabdomyolysis * BMP DIAGNOSIS: monitor for Acute kidney injury DATE OF SERVICE: 11/06/16 Provider Signature: Date: Thank you Allen Jarvis [facility] Information Management Once completed, please kindly fax back to [phone] For questions please call [phone]
== END | disposition home or self-care (01) ==
LOC: C.LAB 09:09
PROVIDERS: ATTEND Student in an Organized Health Care Education/Training Program
DX: M62.82 Rhabdomyolysis (principal)

== ENCOUNTER 2017-06-19 18:01 | Emergency (ER) | payer BC ==
[~2017-06-19] VITALS: Ht 162.6 cm; Wt 60.0 kg
[2017-06-19 18:07] VITALS: Ht 162.6 cm; Wt 60.0 kg
[2017-06-19] MEDS ORDERED: SODIUM CHLORIDE 0.9% 500ML 500 ML IV STA (18:16)
[2017-06-19] MEDS ORDERED: SODIUM CHLORIDE 0.9% 1000ML 1,000 ML IV ONE (18:30)
[2017-06-19 18:33] LABS: BASO % 0.5 %; BASO ABS # 0.04 K/uL (0-0.2); COMPLETE YES; EOS % 2.4 %; IG% 0.2 %; LYMPH % 37.1 %; LYMPH ABS # 3.05 K/uL (1.2-3.4); MEAN CELL VOLUME 97.3 fL (80-100); MEAN CORPUSCULAR HEMOGLOBIN 31.9 pg (25-34); MEAN CORPUSCULAR HGB CONC 32.8 g/dl (32-36); MEAN PLATELET VOLUME 9.9 fL (7.4-10.4); MONO % 5.3 %; NEUT % 54.5 %; PLATELET COUNT 223 K/uL (130-400); RED BLOOD COUNT 4.73 M/uL (4.2-5.4); WHITE BLOOD COUNT 8.23 K/uL (4.8-10.8)
--- NOTE | 2017-06-19 18:43 | EMERGENCY ROOM VISIT NOTE ---
History First contact with patient: 18:05 Chief Complaint: SYNCOPE (NEAR SYNCOPE) Stated Complaint: SYNCOPE Nursing Triage Summary: Near syncopial episode. History of Present Illness The patient is a 21 year old female who presents to the Emergency Room with complaints of a near syncopal episode that occurred prior to arrival. The patient is a [employer] student. She donated plasma earlier today. The patient went into the bathroom at the hub to take the dressing off of her arm. When she unbandaged her arm, the wound began to bleed. She suddenly felt faint. Her vision started to go fuzzy. She broke out into a cold sweat. She did not actually lose consciousness. She did not fall. She denies any injuries. No new medications. She denies any chest pain or difficulty breathing. She denies any heart palpitations. Review of Systems 10 system review performed and negative unless noted in HPI or below Past Medical/Surgical History Medical Problems: (1) Rhabdomyolysis Social History Smoking Status: Never Smoker Drug Use: none Marital Status: in relationship Occupation Status: [employer] student Current/Historical Medications Scheduled Control Pills ( Control Pills), 1 TAB PO DAILY Allergies Coded Allergies: Amoxicillin (Verified Allergy, Unknown, unknown, 06/19/17) Physical Exam Vital Signs Date Time Temp Pulse Resp B/P (MAP) Pulse Ox O2 Delivery O2 Flow Rate FiO2 06/19/17 20:05 37.0 75 18 105/84 99 06/19/17 19:06 75 06/19/17 18:28 82 99/72 99 Room Air 75 106/73 78 105/84 06/19/17 18:07 37.0 82 18 117/78 96 Room Air Physical Exam VITALS: Vitals are noted on the nurse's note and reviewed by myself. Vital signs stable. GENERAL: 21-year-old female, in no acute distress, nondiaphoretic, well- developed well-nourished. SKIN: The skin was without rashes, erythema, edema, or bruising. HEAD: Normocephalic atraumatic. EYES: Pupils equal round and reactive to light and accommodation. Conjunctivae without injection, sclerae without icterus. Extraocular movements intact. MOUTH: Mucous membranes dry NECK: Supple without nuchal rigidity. No lymphadenopathy. Cervical spine is nontender. No JVD. HEART: Regular rate and rhythm without murmurs gallops or rubs. LUNGS: Clear to auscultation bilaterally without wheezes, rales or rhonchi. No accessory muscle use. ABDOMEN: Positive bowel sounds x 4.Soft, nontender, without organomegaly. No guarding or rebound tenderness. MUSCULOSKELETAL: No muscle atrophy, erythema, or edema noted. Strength 5/5 throughout. NEURO: Patient was alert and oriented to person place and time. Normal sensation to touch. No focal neurological deficits. Medical Decision & Procedures Laboratory Results 06/19/17 18:20 Red Blood Count 4.73, Mean Corpuscular Volume 97.3, Mean Corpuscular Hemoglobin 31.9, Mean Corpuscular Hemoglobin Concent 32.8, Mean Platelet Volume 9.9, Neutrophils (%) (Auto) 54.5, Lymphocytes (%) (Auto) 37.1, Monocytes (%) (Auto) 5.3, Eosinophils (%) (Auto) 2.4, Basophils (%) (Auto) 0.5, Neutrophils # (Auto) 4.48, Lymphocytes # (Auto) 3.05, Monocytes # (Auto) 0.44, Eosinophils # (Auto) 0.20, Basophils # (Auto) 0.04 06/19/17 18:20 Test 06/19/17 18:20 06/19/17 18:45 White Blood Count 8.23 K/uL (4.8-10.8) Red Blood Count 4.73 M/uL (4.2-5.4) Hemoglobin 15.1 g/dL (12.0-16.0) Hematocrit 46.0 % (37-47) Mean Corpuscular Volume 97.3 fL (80-100) Mean Corpuscular Hemoglobin 31.9 pg (25-34) Mean Corpuscular Hemoglobin Concent 32.8 g/dl (32-36) Platelet Count 223 K/uL (130-400) Mean Platelet Volume 9.9 fL (7.4-10.4) Neutrophils (%) (Auto) 54.5 % Lymphocytes (%) (Auto) 37.1 % Monocytes (%) (Auto) 5.3 % Eosinophils (%) (Auto) 2.4 % Basophils (%) (Auto) 0.5 % Neutrophils # (Auto) 4.48 K/uL (1.4-6.5) Lymphocytes # (Auto) 3.05 K/uL (1.2-3.4) Monocytes # (Auto) 0.44 K/uL (0.11-0.59) Eosinophils # (Auto) 0.20 K/uL (0-0.5) Basophils # (Auto) 0.04 K/uL (0-0.2) RDW Standard Deviation 42.4 fL (36.4-46.3) RDW Coefficient of Variation 11.9 % (11.5-14.5) Immature Granulocyte % (Auto) 0.2 % Immature Granulocyte # (Auto) 0.02 K/uL (0.00-0.02) Anion Gap 6.0 mmol/L (3-11) Est Creatinine Clear Calc Drug Dose 96.1 ml/min Estimated GFR () 122.2 Estimated GFR (Non- 105.4 BUN/Creatinine Ratio 12.1 (10-20) Calcium Level 8.9 mg/dl (8.5-10.1) Urine Test NEG (NEG) Medications Administered Medications (Trade) Dose Ordered Sig/Celso Route Start Time Stop Time Status Last Admin Dose Admin Sodium Chloride 1,000 ml @ 999 mls/hr Q1H1M ONCE IV 06/19/17 18:30 06/19/17 19:30 DC 06/19/17 18:30 999 MLS/HR ECG Indication: syncope Rate (beats per minute): 66 Rhythm: normal sinus ED Course Patient was seen and examined Vital signs including blood pressure were reviewed medications list was verified with patient Labs were obtained, and a saline lock was established An EKG was performed and reviewed. The patient was put on a monitor. The patient was hydrated with 1.L of normal saline. Upon reevaluation, the patient was resting comfortably. She says that she feels much better. We discussed the results of her workup. I reviewed discharge instructions the patient. They voiced understanding and had no further questions Medical Decision Differential diagnosis: Vasovagal syncope, dehydration, cardiogenic syncope, pulmonary embolus, neurogenic syncope This patient is a 21-year-old female that presented to the emergency department with a near syncopal episode after removing a bandage on her arm today and seeing the wound bleeding. She also donated plasma this morning. She appeared dehydrated. Otherwise, her exam was unremarkable. I do not suspect a cardiac arrhythmia. Her EKG shows normal sinus rhythm with no signs of ischemia or infarction. Her blood work is unremarkable. She felt much better after fluids. The patient was encouraged to increase her fluid intake over the next several days and to not donate plasma for at least 3 days Impression Primary Impression: Vasovagal near syncope Departure Information Dispostion Home / Self-Care Condition GOOD Referrals Jian King MD (PCP) Patient Instructions [facility], Syncope Additional Instructions You were treated in the hospital today for almost passing out. This is likely from donating plasma and feeling slightly faint when you change your dressing It is important to increase your fluids over the next 72 hours No strenuous activity for the next 48 hours Please do not donate plasma for at least 3 days. Return to the emergency department if you have any of the following symptoms: -Fever of 10F or greater -Persistent vomiting - Persistent diarrhea -Lethargy -Chest pain -Shortness of breath -Severe dizziness
[2017-06-19 18:51] LABS: BUN/CREATININE RATIO 12.1 (10-20); CALCIUM 8.9 mg/dl (8.5-10.1); CREATININE 0.8 mg/dl (0.60-1.20); POTASSIUM 3.8 mmol/L (3.5-5.1)
[2017-06-19 20:05] VITALS: BP 105/84; PULSE 75; TEMP 37; O2SAT 99
== END 2017-06-19 20:06 | disposition home or self-care (01) ==
LOC: EDBD 18:01 → C.EDD 18:03
DX: R55 Syncope and collapse (principal); M62.82 Rhabdomyolysis